=== PATIENT | female | born 1985 | race Caucasian/White ===

== ENCOUNTER → 2021-08-19 09:00 | Outpatient (CLI) | payer OTHER, SELFPAY ==
[2021-08-19 21:06] LABS: SARS-CoV-2 RNA PCR Positive
== END ==
PROVIDERS: PCP Nurse Practitioner Gerontology; Visit Provider Nurse Practitioner Gerontology
DX: U07.1 COVID-19 (principal)
CPT/HCPCS: C9803; U0003; U0005

== ENCOUNTER → 2021-08-31 11:21 | Outpatient (CLI) | payer OTHER, SELFPAY ==
--- NOTE | ~2021-08-31 | XR_ITS ---
EXAMINATION: XR chest 2V DATE: 08/31/2021 11:58 INDICATION: COVID-19 pneumonia. Shortness of breath. TECHNIQUE: Frontal and lateral views of the chest were obtained. COMPARISON: Chest 2 views 05/31/2013 FINDINGS: The chest demonstrates clear lungs without pneumonia, pleural effusion, or pneumothorax. Th e heart size is normal. IMPRESSION: 1. No acute cardiopulmonary disease. Reviewed, dictated and finalized at location B. [facility]
== END ==
PROVIDERS: Visit Provider Nurse Practitioner Gerontology
DX: U07.1 COVID-19 (principal)
CPT/HCPCS: 71046

== ENCOUNTER 2022-09-23 15:41 | Outpatient (CLI) | payer OTHER, SELFPAY ==
[2022-09-23 15:54] LABS: Basophils Absolute Auto 0.1 K/mm3 (0.0-0.1); Eosinophils Absolute Auto 0.4 K/mm3 (0-0.3); Hematocrit 40.1 % (37.0-47.0); Hemoglobin 13.3 g/dL (12.0-15.0); Immature Granulocyte Absolute 0.02 K/mm3 (0.00-0.031); Immature Granulocyte Percent A 0.2 % (0-0.5); Lymphocytes Absolute Auto 2.84 K/mm3 (0.9-3.2); Lymphocytes Percent Auto 34.5 % (18.3-44.2); Mean Corpuscular HGB Conc 33.2 g/dl (32-36); Mean Corpuscular Volume 90.5 fl (80-100); Mean Platelet Volume 9.5 fl (7.4-10.4); Monocytes Absolute Auto 0.5 K/mm3 (0.1-0.6); Monocytes Percent Auto 6.4 % (2.6-8.5); Neutrophils Absolute Auto 4.3 K/mm3 (1.3-6.7); Neutrophils Percent Auto 52.9 % (45.5-73.1); Platelet Count Result 251 k/mm3 (150-375); Red Blood Count 4.43 M/mm3 (4.2-5.4); Red Cell Distribution Width 11.3 % (11.5-14.5); White Blood Count 8.2 K/mm3 (4.5-10.0)
[2022-09-23 16:06] LABS: Alanine Aminotransferase 55 U/L (6-35); Albumin Level 4.4 g/dL (3.5-5.1); Alkaline Phosphatase 131 U/L (38-126); Anion Gap 5 mmol/L (8-16); Aspartate Amino Transferase 39 U/L (14-36); Bilirubin,Total 0.4 mg/dL (0.2-1.3); Blood Urea Nitrogen 22 mg/dL (7-17); Calcium 8.6 mg/dL (8.4-10.2); Carbon Dioxide 30 mmol/L (22-30); Chloride 101 mmol/L (98-107); Estimated Glomerular Filt Rate > 60; Glucose 90 mg/dL (65-110); Sodium 136 mmol/L (137-145)
== END 2022-09-23 15:42 | disposition home or self-care (01) ==
LOC: ANHLAB 15:42
PROVIDERS: PCP Family Medicine; Visit Provider Family Medicine
DX: R10.13 Epigastric pain (principal); R14.0 Abdominal distension (gaseous)
CPT/HCPCS: 36415; 80053; 84443; 85025

== ENCOUNTER → 2022-09-28 10:02 | Outpatient (CLI) | payer OTHER, SELFPAY ==
--- NOTE | ~2022-09-28 | US_ITS ---
Limited Abdominal Sonogram: Real-time sonographic imaging of the right upper quadrant was performed. Clinical History: Elevated liver transaminase levels Findings: The liver appears normal with no evidence of mass lesion or bile duct dilatation. Main por fredi vein demonstrates normal direction of flow. The gallbladder is absent, compatible with prior chol ecystectomy. The common bile duct measures 5 mm. The visualized pancreas, aorta, and IVC are unremar kable. Impression: Status post cholecystectomy. No other significant findings. Reviewed, dictated and finalized at location M. [employer] Impression: Status post cholecystectomy. No other significant findings.
== END ==
PROVIDERS: PCP Family Medicine; Visit Provider Family Medicine
DX: R74.01 Elevation of levels of liver transaminase levels (principal); Z90.49 Acquired absence of other specified parts of digestive tract
CPT/HCPCS: 76705

== ENCOUNTER 2022-10-20 11:25 | Day surgery (SDC) | payer OTHER, SELFPAY ==
[2022-09-27 11:14] VITALS: BMI 21.9
[2022-10-18 14:08] VITALS: BMI 21.5
--- NOTE | 2022-10-19 15:17 | WPDANESEPPF ---
Anes - Initial Pre Proc Eval Procedure: Operation Date: 10/20/22 13:30 Proposed Procedures p Esophagogastroduodenoscopy - Mele العراقي MD Date/Time: 10/19/22 15:17 Surgeon: Mele العراقي MD Pre Op Diagnosis: Epigastric Pain and Abdominal Distention Patient Data Age: 37 Gender: F Height: 1.83 m Weight: 72 kg Allergies Allergy/AdvReac Type Severity Reaction Status Date / Time Penicillins Allergy Unknown hives Verified 10/20/22 12:34 Home Medications Medication Instructions Recorded Confirmed Type sertraline 50 mg tablet 50 mg PO DAILY 02/03/21 10/20/22 History albuterol sulfate 90 mcg/actuation 1 puff inhalation Q4H PRN 09/29/21 10/20/22 Rx aerosol inhaler (ProAir HFA) shortness of breath or wheezing #8.5 grams Patient hx anesthesia problems: none Family hx anesthesia problems: none Results Review: All pre-operative results and documents have been reviewed as part of the pre-operative evaluation. [facility] Past Medical History Medical History Abnormal biliary HIDA scan Abnormal Pap smear of cervix Acute midline low back pain without sciatica Acute non-recurrent maxillary sinusitis Arthralgia B12 deficiency Chronic cholecystitis COVID-19 Hiatal hernia with GERD History of HPV infection IFG (impaired fasting glucose) Left ankle swelling Lipid screening Mild intermittent asthma with (acute) exacerbation Mild persistent asthma with exacerbation Onychomycosis Postcholecystectomy syndrome RUQ abdominal pain Slow transit constipation Vitamin D deficiency Surgical History Surgical History H/O arthroscopic knee surgery History of loop electrosurgical excision procedure (LEEP) Hx of cholecystectomy Hx of tonsillectomy Status post Lisa fundoplication Family History Family History Mother Asthma Grandparent Breast cancer Other Diabetes mellitus Family history of allergic disorder Hypertension Social History Social History Social History: Smoking status: Never smoker Second hand tobacco smoke exposure: No Alcohol intake: current Drinks per week: 2 Substance use: never Substance use type: does not use Living arrangements: with family Occupation/Education: occupation Gender identity (if verbalized by the patient): Female Sexual Orientation (if Verbalized by the Patient): Straight or Heterosexual Spiritual care concerns: No Anes - Eval Final PreProcedure Day of Procedure 10/19/22 15:17 Patient weight: normal Heart: regular rate and rhythm Lungs: clear to auscultation and normal air movement Airway: Mallampati scale class II Neurological: alert and oriented Last oral intake: >/= 8 hours ASA classification: II Emergent: no Anesthetic plan: proceed Anesthesia type and monitoring: general GIVS and standard monitoring Results Review: All pre-operative results and documents have been reviewed as part of the pre-operative evaluation. Informed Consent: The patient's anesthetic plan and its attendant risks and benefits were discussed with the patient/family/POA. Questions were solicited and answers provided to the satisfaction of the patient/family/POA.
--- NOTE | 2022-10-19 17:14 | PM.HPGS ---
History of Present Illness History of Present Illness Consent: Risks, benefits, and alternatives have been discussed and questions answered. Patient agrees to proceed with procedure. Chief complaint: Epigastric Pain and Abdominal Distention Narrative: Tamra Rowe is a 37 year old female who was referred for investigation of persistent epigastric pain and bloating which is worse when her stomach is empty. She apparently had a hernia repair when she was a child. I believe that this was a ventral hernia judging by her incision. She has sometimes bloating for solid week. Is not necessarily related to eating. She burps a little but not a lot. She does not drink carbonated beverages. She usually drinks through a sports bottle with dinner but does not use a straw. Review of Systems Review of Systems: All systems reviewed & are unremarkable except as noted in HPI and below PMFSH Past Medical History Medical History Abnormal biliary HIDA scan Abnormal Pap smear of cervix Acute midline low back pain without sciatica Acute non-recurrent maxillary sinusitis Arthralgia B12 deficiency Chronic cholecystitis COVID-19 Hiatal hernia with GERD History of HPV infection IFG (impaired fasting glucose) Left ankle swelling Lipid screening Mild intermittent asthma with (acute) exacerbation Mild persistent asthma with exacerbation Onychomycosis Postcholecystectomy syndrome RUQ abdominal pain Slow transit constipation Vitamin D deficiency Surgical History Surgical History H/O arthroscopic knee surgery History of loop electrosurgical excision procedure (LEEP) Hx of cholecystectomy Hx of tonsillectomy Status post Lisa fundoplication Family History Family History Mother Asthma Grandparent Breast cancer Other Diabetes mellitus Family history of allergic disorder Hypertension Social History Social History Social History: Smoking status: Never smoker Second hand tobacco smoke exposure: No Alcohol intake: current Drinks per week: 2 Substance use: never Substance use type: does not use Living arrangements: with family Occupation/Education: occupation Gender identity (if verbalized by the patient): Female Sexual Orientation (if Verbalized by the Patient): Straight or Heterosexual Spiritual care concerns: No Meds Home Medications and Allergies Home Medications Medication Instructions Recorded Confirmed Type sertraline 50 mg tablet 50 mg PO DAILY 02/03/21 10/20/22 History albuterol sulfate 90 mcg/actuation 1 puff inhalation Q4H PRN 09/29/21 10/20/22 Rx aerosol inhaler (ProAir HFA) shortness of breath or wheezing #8.5 grams Allergies Allergy/AdvReac Type Severity Reaction Status Date / Time Penicillins Allergy Unknown hives Verified 10/20/22 12:34 Exam Const: General: alert Orientation/consciousness: patient oriented x3 Resp: Auscultation: clear to auscultation bilaterally Cardio: Rhythm: regular rhythm GI: GI Palp: Yes Soft to palpation and No Tenderness to palpation present (GI) Neuro: General: patient oriented x3 Assessment and Plan Assessment and plan (1) Epigastric abdominal pain: Code(s): R10.13 - Epigastric pain Status: Acute Assessment and Plan: EGD with possible biopsy or dilatation or cautery.
[2022-10-20] MEDS: LACTATED RINGERS 1,000 ML 150 ML IV CONT (12:30)
[2022-10-20 12:35] VITALS: BP 116/82; PULSE 93; RESP 20; TEMP 37.1; O2SAT 100
[2022-10-20 14:04] VITALS: BP 103/68; PULSE 70; RESP 16; O2SAT 100
[2022-10-20 14:14] VITALS: BP 107/70; PULSE 70; RESP 16; O2SAT 100
[2022-10-20 14:24] VITALS: BP 125/68; PULSE 70; RESP 16; O2SAT 100
--- NOTE | 2022-10-20 14:27 | SUR.PHASEII ---
PT AWAKE AND ALERT. DENIES PAIN. EATING AND DRINKING.
--- NOTE | 2022-10-20 14:32 | WPDANESPN ---
Anes - Prog Note Post-Op Date/Time: 10/20/22 14:32 Cardiovascular status: normal Respiratory status: normal Airway patency: baseline Mental status: baseline Post-Op hydration status: normal Vital Signs: Last Vital Signs Temp 37.1 C 10/20/22 12:35 Pulse 70 10/20/22 14:24 Resp 16 10/20/22 14:24 BP 125/68 10/20/22 14:24 Pulse Ox 100 10/20/22 14:24 O2 Del Method Room Air 10/20/22 14:24 Pain Score (VAS): 0 I/O: Intake & Output 10/19/22 10/20/22 10/20/22 23:59 07:59 15:59 Intake Total 300 Balance 300 Post-procedural complaints: none Patient Feedback: Patient satisfied with anesthetic care. Other Findings: Patient vital signs back to baseline. Patient denies nausea and vomiting. Patient's pain under control. Patient OK for discharge.
== END 2022-10-20 14:41 | disposition home or self-care (01) ==
PROVIDERS: PCP Family Medicine; Visit Provider Internal Medicine Gastroenterology
PROC: 0DJ08ZZ Inspection of Upper Intestinal Tract, Via Natural or Artificial Opening Endoscopic (ICD-10-PCS; CPT 43235; principal; 2022-10-20 13:30)
DX: R10.13 Epigastric pain (principal)
CPT/HCPCS: 43239

== ENCOUNTER 2023-03-26 07:18 | Outpatient (CLI) | payer OTHER, SELFPAY ==
--- NOTE | ~2023-03-26 | MM_ITS ---
EXAMINATION: MM screening viktoria BI w juve HISTORY: Baseline screening mammogram TECHNIQUE: Craniocaudal and mediolateral oblique 3-D tomosynthesis images were obtained and synthetic 2-D images were generated. CAD analysis was submitted and interpreted. COMPARISON: None, baseline BREAST PARENCHYMAL COMPOSITION: There are scattered areas of fibroglandular density. FINDINGS: No suspicious mass, calcification, or architectural distortion are identified in either leatha ast to suggest malignancy. IMPRESSION: 1. No mammographic evidence of malignancy. 2. Recommend routine screening mammography in one year. BI-RADS Category 1: Negative Reviewed, dictated and finalized at location A.
== END 2023-03-26 07:19 | disposition home or self-care (01) ==
LOC: ANHIMG 07:21
PROVIDERS: PCP Family Medicine
DX: Z12.31 Encounter for screening mammogram for malignant neoplasm of breast (principal)
CPT/HCPCS: 77063; 77067

== ENCOUNTER 2024-06-21 13:24 | Outpatient (CLI) | payer OTHER, SELFPAY ==
--- NOTE | ~2024-06-21 | MMUS_ITS ---
EXAMINATION: MM diagnostic viktoria BI w juve, US breast LT complete HISTORY: Left breast lump TECHNIQUE: 3-D tomosynthesis images of the breasts were performed and synthetic 2-D images were gener ated. CAD analysis was submitted and interpreted. High resolution limited left breast ultrasound was performed. COMPARISON: 03/26/2023 BREAST PARENCHYMAL COMPOSITION:Dense: The breasts are heterogeneously dense, which may obscure small masses. FINDINGS: MAMMOGRAPHIC FINDINGS: Parenchymal pattern of the breasts is unchanged. No new distortion, suspicious mass lesion, or suspic ious microcalcification seen. ULTRASOUND: There is a 4 mm cyst in the left axilla. No other sonographic abnormality seen in the region scanned. IMPRESSION: No evidence for malignancy. 4 mm left axillary region cyst. BI-RADS Category 2: Benign finding(s). Reviewed, dictated and finalized at [facility]. IMPRESSION: No evidence for malignancy. 4 mm left axillary region cyst. BI-RADS Category 2: Benign finding(s).
== END 2024-06-21 13:25 | disposition home or self-care (01) ==
PROVIDERS: PCP Family Medicine; Visit Provider Obstetrics & Gynecology
DX: N63.21 Unspecified lump in the left breast, upper outer quadrant (principal); N60.02 Solitary cyst of left breast
CPT/HCPCS: 76641; 77062; 77066; G0279

== ENCOUNTER 2024-06-27 15:00 | Outpatient (CLI) | payer OTHER, SELFPAY ==
--- NOTE | ~2024-06-27 | US_ITS ---
EXAM: TRANSABDOMINAL AND TRANSVAGINAL PELVIC ULTRASOUND HISTORY: N93.9 - Abnormal uterine and vaginal bleeding, unspecified COMPARISON: None. FINDINGS: UTERUS: 9.4 x 4.3 x 6.0 cm. The uterus is anteverted and anteflexed. The endometrial complex measures 8.6 mm. The myometrium is heterogeneous. Multiple subcentimeter anechoic foci within the cervix. An additional anechoic focus is identified within the lower uterine segment. A smooth external uterine contour is present. Linear striations (fingerlike projections) radiating out from the endometrium into the myometrium, medrano ggesting adenomyosis. RIGHT OVARY: The right ovary is unremarkable in echogenicity and size measuring 2.4 x 1.5 x 1.7 cm. Arterial and venous flow are identified. LEFT OVARY: The left ovary is heterogeneous in echogenicity and unremarkable in size measuring 3.0 x 2.4 x 2.2 cm Both arterial and venous flow are identified. A well-circumscribed anechoic avascular structure is identified within the left ovary measuring 15 x 11 x 15 mm, for which no further follow-up is needed.. Trace free fluid is identified within the posterior cul-de-sac IMPRESSION: Cervical cysts. Findings suggesting adenomyosis, as detailed above. Reviewed, dictated and finalized at location A. [employer]
== END 2024-06-27 15:01 | disposition home or self-care (01) ==
PROVIDERS: PCP Family Medicine; Visit Provider Obstetrics & Gynecology
DX: N88.8 Other specified noninflammatory disorders of cervix uteri (principal)
CPT/HCPCS: 76830; 76856

== ENCOUNTER 2024-07-01 18:27 | Emergency (ER) | payer OTHER, SELFPAY ==
[2024-07-01 18:34] VITALS: BP 127/79; PULSE 75; RESP 16; TEMP 36.4; O2SAT 100
[2024-07-01 19:15] VITALS: PULSE 78; RESP 24; O2SAT 100
[2024-07-01] MEDS: IPRATROPIUM BR 0.02% INH SOLN 0.5 MG/2.5 ML VIAL INHALATION (19:22)
[2024-07-01] MEDS: ALBUTEROL SULFATE NEB 2.5 MG/3 ML INH INHALATION (19:22)
--- NOTE | 2024-07-01 19:45 | ED_ITS ---
HPI - Asthma General Chief Complaint: Asthma Stated Complaint: SOB/Chest Pain/Cough Time Seen by Provider: 07/01/24 19:07 Source: patient and RN notes reviewed Mode of arrival: ambulatory Limitations: no limitations History of Present Illness HPI Narrative: Patient presents today with shortness of breath, cough, chest pressure times 3-4 days. Denies fever, congestion, rhinorrhea, sore throat. History of asthma. She has increased use of her albuterol, which has not been providing her much relief. Last month she had a Medrol Dosepak and azithromycin when son had pneumonia last month. Related Data Allergies Allergy/AdvReac Type Severity Reaction Status Date / Time Penicillins Allergy Unknown hives Verified 07/01/24 18:37 Review of Systems Review of Systems: CONSTITUTIONAL: Denies body aches, fever, chills, or sweats. EYES: Denies visual changes, redness, or discharge. ENT: Denies rhinorrhea, congestion, sore throat, or otalgia. CARDIOVASCULAR: Denies chest pain, palpitations, or edema. RESPIRATORY: Cough, shortness of breath, chest pressure. GASTROINTESTINAL: Denies abdominal pain, nausea, vomiting, or diarrhea. GENITOURINARY: Denies dysuria or hematuria. SKIN: Denies rash, itching, or wounds. MUSCULOSKELETAL: Denies back pain, joint pain, or myalgia. NEUROLOGIC: Denies headache, numbness, tingling, or weakness. PSYCH: Denies depression or anxiety. [facility] Past Medical History Medical History Abnormal biliary HIDA scan Abnormal Pap smear of cervix Acute midline low back pain without sciatica Acute non-recurrent maxillary sinusitis Arthralgia Asthma B12 deficiency Chronic cholecystitis COVID-19 Hiatal hernia with GERD History of HPV infection IFG (impaired fasting glucose) Left ankle swelling Lipid screening Mild intermittent asthma with (acute) exacerbation Mild persistent asthma with exacerbation Onychomycosis Postcholecystectomy syndrome RUQ abdominal pain Slow transit constipation Vitamin D deficiency Surgical History Surgical History H/O arthroscopic knee surgery History of loop electrosurgical excision procedure (LEEP) Hx of cholecystectomy Hx of tonsillectomy Status post Lisa fundoplication Family History Family History Mother Asthma Grandparent Breast cancer Other Diabetes mellitus Family history of allergic disorder Hypertension Social History Social History Social History: Smoking status: Never smoker Second hand tobacco smoke exposure: No Alcohol intake: current Drinks per week: 2 Alcohol use details: 1-4/wk Substance use: never Substance use type: does not use Do You Feel Safe in your Home?: Yes Current Housing: Decline to Answer Concerned About Future Housing: Decline to Answer Difficulty Paying Gas/Electric Bills: Decline to Answer Difficulty Paying for Meds: Decline to Answer Currently Unemployed: Decline to Answer Education: Decline to Answer Difficulty w/ Childcare or Family Care: Decline to Answer Living arrangements: with family Occupation/Education: occupation Gender identity (if verbalized by the patient): Female Sexual Orientation (if Verbalized by the Patient): Straight or Heterosexual Spiritual care concerns: No Comments At time of signature, I have reviewed and agree with nursing past medical, surgical, social and family history unless otherwise noted. Please see nursing chart for further information. There is no relevant family history pertinent to the presenting complaint Exam Narrative: GENERAL: Well-appearing, well-nourished, and in no acute distress. HEAD: Normocephalic, atraumatic. EYES: EOMI. No redness or drainage. Conjunctivae normal. ENT: Mucous membranes pink and moist. NECK: Normal AROM. Supple. No lymphadenopathy. CHEST: No respiratory distress. Deep breath elicits coughing episodes. Mildly Decreased aeration throughout. No wheezing, crackles, rhonchi. HEART: Regular rate and rhythm. No murmur appreciated. EXTREMITIES: Normal range of motion. No edema. SKIN: Warm, dry, no rash. Capillary refill normal. Normal skin turgor. NEURO: No focal deficits. Alert and oriented x3. Gait steady. PSYCH: Normal affect. No signs of depression or anxiety. Course Course Emergency Course: After DuoNeb treatment, patient states she cannot take a deep breath well. Increased aeration throughout. Level of Care: Express Care Visit Vital Signs Vital signs: Vital Signs Temperature 97.6 F 07/01/24 18:34 Pulse Rate 75 07/01/24 18:34 Respiratory Rate 16 07/01/24 18:34 Blood Pressure 127/79 07/01/24 18:34 Pulse Oximetry 100 07/01/24 18:34 Temperature 97.6 F 07/01/24 18:34 Pulse Rate 75 07/01/24 18:34 Respiratory Rate 16 07/01/24 18:34 Blood Pressure 127/79 07/01/24 18:34 Pulse Oximetry 100 07/01/24 18:34 Reviewed MDM - Asthma MDM Narrative Medical decision making narrative: Patient will be treated with prednisone, DuoNeb, and a new albuterol inhaler for asthma exacerbation. At this time she does not feel that she is ill, so no further testing indicated. ED precautions given. Differential Diagnosis Differential diagnosis: Likely Acute exacerbation and other (URI, bronchitis) Critical Care Time Critical Care Time Critical Care Time: No Discharge Plan Discharge Clinical Impression: Asthma with acute exacerbation Qualifiers: Asthma severity: unspecified severity Asthma persistence: unspecified Qualified Code(s): J45.901 - Unspecified asthma with (acute) exacerbation Patient Disposition: Home, Self-Care Condition: Stable Instructions: Asthma (DC) Additional Instructions: Please use all medications as prescribed. If you find that your symptoms are not improving even with the prednisone and breathing treatments, please go to the ER for further evaluation and treatment. Your blood pressure was elevated above 120/80 today at Urgent Care. This puts you above the threshold for follow up. Please schedule a followup visit with your personal physician as soon as possible, for further evaluation and treatment. Even blood pressure exceeding 120/80 may indicate pre-hypertension. Prescriptions: New prednisone 50 mg tablet 50 mg PO DAILY 5 Days Qty: 5 0RF albuterol sulfate 90 mcg/actuation HFA aerosol inhaler 2 inh inhalation Q4-6H PRN (Reason: shortness of breath or wheezing) Qty: 8.5 0RF (DME) [employer] MDI Spacer Spacer See Rx Instructions .ROUTE .MEDSUPPLY Qty: 1 0RF Rx Instructions: As directed ipratropium-albuterol 0.5 mg-3 mg(2.5 mg base)/3 mL solution for nebulization 3 ml inhalation BID Qty: 90 0RF No Action albuterol sulfate [ProAir HFA] 90 mcg/actuation HFA aerosol inhaler 1 puff inhalation Q4H PRN (Reason: shortness of breath or wheezing) Qty: 8.5 3RF sertraline 50 mg tablet 50 mg PO DAILY Qty: 90 4RF Follow-up/Referrals: Milagros Acosta MD [Primary Care Provider] - Time of Disposition: 19:55
[2024-07-01 19:50] VITALS: PULSE 78; RESP 20; O2SAT 100
== END 2024-07-01 19:57 | disposition home or self-care (01) ==
PROVIDERS: Emergency Provider Nurse Practitioner; PCP Family Medicine
DX: J45.901 Unspecified asthma with (acute) exacerbation (principal); Z86.16 Personal history of COVID-19
CPT/HCPCS: 94640; 99213; G0463

== ENCOUNTER 2024-07-15 14:07 | Emergency (ER) | payer OTHER, SELFPAY ==
--- NOTE | ~2024-07-15 | XR_ITS ---
XR chest 2V DATE: 07/15/2024 14:54 INDICATION: Cough for 2 weeks TECHNIQUE: 2 views COMPARISON: 08/31/2021 2 view chest FINDINGS: Normal heart size. No hilar or mediastinal enlargement. No pulmonary infiltrate or consolid ation, pleural effusion or pulmonary vascular congestion or pneumothorax is detected. There is mild thoracic levoscoliosis. 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
[2024-07-15 14:23] VITALS: BP 106/71; PULSE 93; RESP 16; TEMP 36.6; O2SAT 98
--- NOTE | 2024-07-15 14:45 | ED_ITS ---
HPI - URI/Sore Throat General Chief Complaint: Upper Respiratory Infection Stated Complaint: Cough Time Seen by Provider: 07/15/24 14:45 Source: patient Mode of arrival: ambulatory Limitations: no limitations History of Present Illness HPI Narrative: 39-year-old female presented for complaints of cough and nasal congestion for 4 days. She states she felt well for about 3 days prior to that after completing an antibiotic prescribed by PCP on 07/05. Patient was seen in the clinic on 07/01, a prescribed a steroid, inhaler, and nebulizer medication. She states she has continued to take these medicines over the last 4 days. Related Data Allergies Allergy/AdvReac Type Severity Reaction Status Date / Time Penicillins Allergy Unknown hives Verified 07/15/24 14:39 Review of Systems Review of Systems: CONSTITUTIONAL: Denies body aches, fever, chills, or sweats. EYES: Denies visual changes, redness, or discharge. ENT: reports rhinorrhea, congestion, denies sore throat, or otalgia. CARDIOVASCULAR: Denies chest pain, palpitations, or edema. RESPIRATORY: Reports cough, denies sob, wheezing. NEUROLOGIC: Denies headache, numbness, tingling, or weakness. All systems reviewed & are unremarkable except as noted in HPI and below PMFSH Past Medical History Medical History Abnormal biliary HIDA scan Abnormal Pap smear of cervix Acute midline low back pain without sciatica Acute non-recurrent maxillary sinusitis Arthralgia Asthma B12 deficiency Chronic cholecystitis COVID-19 Hiatal hernia with GERD History of HPV infection IFG (impaired fasting glucose) Left ankle swelling Lipid screening Mild intermittent asthma with (acute) exacerbation Mild persistent asthma with exacerbation Onychomycosis Postcholecystectomy syndrome RUQ abdominal pain Slow transit constipation Vitamin D deficiency Surgical History Surgical History H/O arthroscopic knee surgery History of loop electrosurgical excision procedure (LEEP) Hx of cholecystectomy Hx of tonsillectomy Status post Lisa fundoplication Family History Family History Mother Asthma Grandparent Breast cancer Other Diabetes mellitus Family history of allergic disorder Hypertension Social History Social History Social History: Smoking status: Never smoker Second hand tobacco smoke exposure: No Alcohol intake: current Alcohol use details: 1-4/wk Substance use: never Substance use type: does not use Do You Feel Safe in your Home?: Yes Lack of Transportation: YES Lack of Food: Never True Current Housing: I Do Not Have Housing Concerned About Future Housing: No Difficulty Paying Gas/Electric Bills: No Difficulty Paying for Meds: No Currently Unemployed: No Education: Don't Know Difficulty w/ Childcare or Family Care: No Living arrangements: with family Occupation/Education: occupation Gender identity (if verbalized by the patient): Female Sexual Orientation (if Verbalized by the Patient): Straight or Heterosexual Spiritual care concerns: No Comments At time of signature, I have reviewed and agree with nursing past medical, surgical, social and family history unless otherwise noted. Please see nursing chart for further information. There is no relevant family history pertinent to the presenting complaint Exam Narrative: GENERAL: Well-appearing, in no acute distress. EYES: EOMI. No redness or drainage. Conjunctivae normal. ENT: Mucous membranes pink and moist. No rhinorrhea. TMs normal bilaterally. Throat normal. Uvula midline. CHEST: No respiratory distress. Lungs clear to all shen. Frequent nonproductive cough HEART: Regular rate and rhythm. No murmur appreciated. SKIN: Warm, dry, Capillary refill normal. Normal skin turgor. NEURO: Alert and oriented x3. Gait steady. PSYCH: Normal affect. Course Course Emergency Course: Patient is aware of diagnosis, understands and agrees to treatment plan. Anticipatory guidance given. Patient agrees to follow-up as directed and is aware of reasons to seek care at the emergency department. Portions of this record may have been created with voice recognition software Level of Care: Express Care Visit Vital Signs Vital signs: Vital Signs Temperature 97.9 F 07/15/24 14:23 Pulse Rate 93 07/15/24 14:23 Respiratory Rate 16 07/15/24 14:23 Blood Pressure 106/71 07/15/24 14:23 Pulse Oximetry 98 07/15/24 14:23 Temperature 97.9 F 07/15/24 14:23 Pulse Rate 93 07/15/24 14:23 Respiratory Rate 16 07/15/24 14:23 Blood Pressure 106/71 07/15/24 14:23 Pulse Oximetry 98 07/15/24 14:23 MDM - URI/Sore Throat MDM Narrative Medical decision making narrative: Discussed physical exam findings and CXR. Pt has completed 2 courses of steroids without significant improvement and declines it today. Advised supportive measures and signs/symptoms to go to the ER. Pt is appropriate for outpt treatment and f/u. Differential Diagnosis Differential diagnosis: Likely upper respiratory infection, sinusitis, viral infection and bronchitis Imaging Data Radiologist's impression: Patient: Tamra Rowe : 1985 MR#: [id number] Age: 39 Acct:[id number] Loc: [id number] ADM Date: 07/15/24Attending Dr: Ordering Physician: Katerina Diaz APRN Date of Service: 07/15/24 Procedure(s): XR chest 2V Accession Number(s): [id number] cc: Katerina Diaz APRN; TURBINE ENGINEER PHYSICIAN~ XR chest 2V DATE: 07/15/2024 14:54 INDICATION: Cough for 2 weeks TECHNIQUE: 2 views COMPARISON: 08/31/2021 2 view chest FINDINGS: Normal heart size. No hilar or mediastinal enlargement. No pulmonary infiltrate or consolidation, pleural effusion or pulmonary vascular congestion or pneumothorax is detected. There is mild thoracic levoscoliosis. IMPRESSION: No active cardiopulmonary disease Discharge Plan Discharge Clinical Impression: Bronchitis Patient Disposition: Home, Self-Care Condition: Stable Instructions: Antibiotic Form, Acute Bronchitis (ED) Additional Instructions: Acute bronchitis can be contagious because it is usually caused by infection with a virus or bacteria. It is usually for a few days but you can be contagious for up to one week. Avoid crowds until you do not have a fever and symptoms are improved Recommendations: Continue the previously prescribed albuterol inhaler and cough syrup at night over the counter Cough syrup may cause drowsiness; avoid driving or take it at night time. Tylenol 1000mg every 8 hours as needed for pain Flonase spray and Zyrtec (or Claritin/Cami) if you have nasal congestion/drainage Symptomatic treatment includes: rest, fluids, and increase humidity of the air at home. Follow up with your primary care provider this week Go to the ER for worsening symptoms or concerns Prescriptions: No Action albuterol sulfate 90 mcg/actuation HFA aerosol inhaler 2 inh inhalation Q4-6H PRN (Reason: shortness of breath or wheezing) Qty: 8.5 0RF (DME) [facility] MDI Spacer Spacer See Rx Instructions .ROUTE .MEDSUPPLY Qty: 1 0RF Rx Instructions: As directed ipratropium-albuterol 0.5 mg-3 mg(2.5 mg base)/3 mL solution for nebulization 3 ml inhalation BID Qty: 90 0RF albuterol sulfate [ProAir HFA] 90 mcg/actuation HFA aerosol inhaler 1 puff inhalation Q4H PRN (Reason: shortness of breath or wheezing) Qty: 8.5 3RF sertraline 50 mg tablet 50 mg PO DAILY Qty: 90 4RF azithromycin 250 mg tablet See Rx Instructions PO .COMPLEX Qty: 6 0RF Rx Instructions: For 250 mg dose pack: take 500 mg today (day 1), then 250 mg for 4 days (days 2-5) PO prednisone 10 mg tablet 10 mg PO DAILY Qty: 30 0RF Rx Instructions: Take PO 4 tabs daily x3 days, 3 tabs daily x3 days, 2 tabs daily x3 days, 1 tab daily x3 days codeine-guaifenesin 10-100 mg/5 mL liquid 5 ml PO Q6H PRN (Reason: cough) Qty: 250 0RF Follow-up/Referrals: PHYSICIAN,TURBINE ENGINEER [Primary Care Provider] - Time of Disposition: 15:15
== END 2024-07-15 15:20 | disposition home or self-care (01) ==
PROVIDERS: Emergency Provider Nurse Practitioner Family
DX: J40 Bronchitis, not specified as acute or chronic (principal); J45.909 Unspecified asthma, uncomplicated; K21.9 Gastro-esophageal reflux disease without esophagitis
CPT/HCPCS: 71046; 99213; G0463

== ENCOUNTER 2024-07-30 15:12 | Outpatient (CLI) | payer OTHER, SELFPAY ==
--- NOTE | ~2024-07-30 | XR_ITS ---
Clinical Indication: Cough PA and lateral views of the chest: Comparison: 07/15/2024 Findings: The lungs are clear, without evidence of focal consolidation or pleural effusion. Cardiome diastinal silhouette is within normal limits. Bones and soft tissues are unremarkable. Impression: Normal chest. Reviewed, dictated and finalized at location . MENT TESTER Impression: Normal chest.
== END 2024-07-30 15:13 | disposition home or self-care (01) ==
LOC: MICIMG 15:13
PROVIDERS: PCP Student in an Organized Health Care Education/Training Program; Visit Provider Student in an Organized Health Care Education/Training Program
DX: R05.9 Cough, unspecified (principal)
CPT/HCPCS: 71046

== ENCOUNTER 2024-09-04 16:13 | Outpatient (CLI) | payer OTHER, SELFPAY ==
[2024-09-04 17:03] LABS: Basophils Absolute Auto 0.1 K/mm3 (0.0-0.1); Basophils Percent Auto 0.8 % (0.2-1.2); Eosinophils Absolute Auto 0.4 K/mm3 (0-0.3); Eosinophils Percent Auto 4.1 % (0-4.4); Hematocrit 39.2 % (37.0-47.0); Hemoglobin 12.8 g/dL (12.0-15.0); Immature Granulocyte Absolute 0.02 K/mm3 (0.00-0.031); Immature Granulocyte Percent A 0.2 % (0-0.5); Lymphocytes Absolute Auto 2.46 K/mm3 (0.9-3.2); Lymphocytes Percent Auto 25.1 % (18.3-44.2); Mean Corpuscular HGB Conc 32.7 g/dl (32-36); Mean Corpuscular Hemoglobin 30.2 pg (26-34); Mean Corpuscular Volume 92.5 fl (80-100); Mean Platelet Volume 9.9 fl (7.4-10.4); Monocytes Absolute Auto 0.4 K/mm3 (0.1-0.6); Monocytes Percent Auto 4.5 % (2.6-8.5); Neutrophils Absolute Auto 6.4 K/mm3 (1.3-6.7); Neutrophils Percent Auto 65.3 % (45.5-73.1); Platelet Count Result 254 k/mm3 (150-375); Red Blood Count 4.24 M/mm3 (4.2-5.4); Red Cell Distribution Width 11.4 % (11.5-14.5); White Blood Count 9.8 K/mm3 (4.5-10.0)
[2024-09-04 17:30] LABS: Beta HCG Quantitative < 2.39 mIU/ML
[2024-09-07 12:23] LABS: Immunoglobulin E 21 kU/L (<OR=114)
== END 2024-09-04 16:14 | disposition home or self-care (01) ==
LOC: ANHLAB 16:15
PROVIDERS: PCP Student in an Organized Health Care Education/Training Program; Referring Provider Internal Medicine Pulmonary Disease; Visit Provider Obstetrics & Gynecology
DX: Z30.430 Encounter for insertion of intrauterine contraceptive device (principal)
CPT/HCPCS: 36415; 82785; 84702; 85025